=== PATIENT | female | born 1930 | race Caucasian/White ===

== ENCOUNTER 2019-05-12 17:08 | Observation (INO) ==
--- NOTE | 2019-05-12 17:27 | Emergency Department Note ---
ED Disposition Clinical Impression: Seizure Disposition: Admitted as Observation Condition on Discharge: Good - Critical Care Critical Care Time: No Attestation: On 05/12/19, the high probability of a clinically significant, sudden or life threatening deterioration of the following system(s) required my full and direct attention, intervention and personal management. The time I documented below is in addition to time spent performing reported procedures but includes the following listed in this critical care notation. Medical Decision Making - Nacho Inquiry Pt receiving controlled substance: No Vital Signs: 05/12/19 17:09 05/12/19 17:39 05/12/19 18:09 Temperature 97.9 F Temperature Source Oral Pulse Rate [Apical] 86 70 70 Respiratory Rate 18 Blood Pressure [Right Arm] 121/73 102/60 L 119/67 Blood Pressure Mean [Right Arm] 89 74 84 Blood Pressure Source [Right Arm] Automatic Cuff Blood Pressure Position [Right Arm] Sitting 02 Sat by Pulse Oximetry 94 L 92 L 96 Oxygen Delivery Method Room Air 05/12/19 18:49 Temperature Temperature Source Pulse Rate [Apical] 70 Respiratory Rate Blood Pressure [Right Arm] 141/76 H Blood Pressure Mean [Right Arm] 97 Blood Pressure Source [Right Arm] Blood Pressure Position [Right Arm] 02 Sat by Pulse Oximetry 94 L Oxygen Delivery Method - Lab Data Lab Results 05/12/19 17:10: WBC 7.5, RBC 4.47, Hgb 13.6, Hct 41.7, MCV 93.2, MCH 30.5, MCHC 32.7, RDW 12.9, Plt Count 235, MPV 7.3 L, Neut % (Auto) 55.4, Lymph % (Auto) 35.0, [place] % (Auto) 6.6, Eos % (Auto) 2.4, Baso % (Auto) 0.6, Neut # (Auto) 4.1, Lymph # (Auto) 2.6, [place] # (Auto) 0.5, Eos # (Auto) 0.2, Baso # (Auto) 0.1 05/12/19 17:10: Sodium 134 L, Potassium 3.9, Chloride 99, Carbon Dioxide 29, Anion Gap 9.9, BUN 18, Creatinine 1.11 H, Estimated Creat Clear 38, Estimated GFR 46 L, Est GFR ( Amer) 56 L, Glucose 184 H, Calcium 9.6, Total Bilirubin 0.6, AST 54 H, ALT 53, Alkaline Phosphatase 108, Troponin I < 0.02, Total Protein 7.2, Albumin 3.6, Globulin 3.6 H, Albumin/Globulin Ratio 1.0 L 05/12/19 18:16: Urine Color Yellow, Urine Appearance Clear, Urine pH 5.5, Ur Specific [place] 1.020, Urine Protein Negative, Urine Glucose (UA) Negative, Urine Ketones Negative, Urine Blood Negative, Urine Nitrate Negative, Urine Bilirubin Negative, Urine Urobilinogen 0.2, Ur Leukocyte Esterase Negative, Urine WBC Occasional, Ur Squamous Epith Cells Occasional, Urine Bacteria Trace, Hyaline Casts Occasional Result diagrams: 05/12/19 17:10 05/12/19 17:10 Orders (Tests/Meds): ORDERS Category Date Time Status CT head/brain wo con Stat Cat Scan 05/12/19 17:54 Taken - ECG Data Tracing #1 EKG interpreted by Néstor Yun MD: Rhythm: Electronic atrial pacemaker Rate: 76 [place]: Left Ectopy: none Conduction: normal ST Segment Changes: none T Wave Changes: none Q Waves: none No evidence of acute ischemia or injury LVH with repolarization abnormality Prior electrocardiagrams reviewed. No change from prior tracings. - Physician Consults Physician Consulted: Dana Maxwell Time: 19:45 Reason -: Admission Comment/Response: Agrees to admit the patient to the hospital. We discussed the patient's clinical information, including history, exam, laboratory and radiology results and ED course. Per hospital procedure, I will write temporary bridge inpatient orders on the patient. Specific orders requested by the admitting physician: Seizure precautions General Adult HPI - General Chief complaint: Syncope Stated complaint: Syncope Time Seen by Provider: 05/12/19 17:50 Mode of Arrival: EMS Limitations: No Limitations Description of Symptoms (Recalled from ER Triage Doc. by RN): internal grinder tender reported to EMS that she had just finished giving pt a bath, states when she stood pt up pt began shaking states she sat pt back down pt got was off balance and acted like she may pass out. States pt vomitting x1. EMS reports upon their arrival pt reported feeling better after vomitting. Upon arrival to ED pt has no complaints, states she is not hurting anywhere or dizzy. - History of Present Illness HPI narrative: Brought in by ambulance. History obtained from patient's pickle sorter and son. Regional Hr Manager witnessed the events today. She says that the patient complained of being tired today. A couple of times complained of difficulty breathing. All of that seemed to resolve. She then says that the patient was sitting in a chair and began shaking. She believed it was a seizure. It lasted for 2 minutes and the patient was unresponsive and drooling during the episode. Patient now says she feels fine. She denies any pain including headache. No chest pain. No shortness of breath. She has never had a seizure. She has dementia. Recently had a Quietapine added as needed for sleep at night and Aricept dose increased. Son states recently treated for urinary tract infection, had to have outpatient IV antibiotic therapy. - Related Data Home Medications Medication Instructions Recorded Confirmed Apixaban [Eliquis 2.5mg tab] 2.5 mg PO BID 11/22/17 05/12/19 Donepezil HCl [Aricept] 10 mg PO DAILY 11/22/17 05/12/19 Isosorbide Mononitrate [Imdur 60mg 30 mg PO DAILY 11/22/17 05/12/19 ER tablet] Potassium Chloride [K-Tab ER 10 10 mg PO BID 11/22/17 05/12/19 mEq] Sertraline HCl 50 mg PO DAILY 11/22/17 05/12/19 Sitagliptin Phosphate [Januvia 100 mg PO DAILY 11/22/17 05/12/19 25mg Tablet] Telmisartan [Micardis] 40 mg PO DAILY 11/22/17 05/12/19 Torsemide 10 mg PO DAILY 11/22/17 05/12/19 Memantine HCl [Namenda Xr] 28 mg PO DAILY 05/17/18 05/12/19 Insulin NPH Hum/Reg Insulin Hm 8 unit SQ HS 05/12/19 05/12/19 [Novolin 70-30 100 Unit/ml Vial] Insulin NPH Hum/Reg Insulin Hm 16 unit SQ DAILY 05/12/19 05/12/19 [Novolin 70-30 100 Unit/ml Vial] Metoprolol Tartrate 50 mg PO BID 05/12/19 05/12/19 Quetiapine Fumarate [Seroquel 25mg 25 mg PO HS 05/12/19 05/12/19 tablet] Allergies Allergy/AdvReac Type Severity Reaction Status Date / Time No Known Allergies Allergy Verified 05/17/18 20:44 [facility] History - Hepatitis A Screen Drug use history?: No High risk sexual behaviors?: No History of sexually transmitted infection?: No Currently employed?: No Childcare worker?: No Do you have indoor plumbing?: Yes Do you have electricity?: Yes Attestation statement:: This patient has been screened for Hepatitis A risk factors. I have reviewed the patient's past medical history: Yes Medical History: Reports:: Atrial Fibrillation, Diabetes Mellitus Type 2, Hyperlipidemia, Hypertension, Internal Pacemaker, Myocardial Infarction Denies:: Cancer, Diabetes Mellitus Type 1, MRSA Other Surgeries: Yes: Pacemaker Amputation: No Fractures: No - Social History Smoking Status: Never smoker Alcohol Intake: never Occupational Status: retired Household Members: children Family Hx:: Cancer, Hypertension ROS Obtained: Yes All systems reviewed & no additional complaints - Constitutional Constitutional: Denies fever(s) - Eyes Eyes: Denies change in vision - Cardiovascular Cardiovascular: Denies chest pain - Respiratory Respiratory: Yes as per HPI - Gastrointestinal Gastrointestingal: Denies: abdominal pain, diarrhea, vomiting - Genitourinary Female Genitourinary: Reports as per HPI - Neurologic Neurologic: Denies headache(s), Reports seizure-like activity Physical Exam - General General appearance: alert, in no apparent distress - Head Head exam: atraumatic, normocephalic - Eye Eye exam: Present: normal appearance, PERRL, EOMI - ENT ENT exam: Present: mucous membranes moist - Neck Neck exam: Present: normal inspection, full ROM, trachea midline. Absent: meningismus - Chest Chest inspection: Present: normal inspection, symmetric chest wall rise - Respiratory Respiratory exam: Present: normal lung sounds bilaterally. Absent: respiratory distress - Cardiovascular Cardiovascular exam: Present: regular rate, normal rhythm - Abdominal Exam Abdominal exam: Present: soft, normal bowel sounds. Absent: distention, tenderness - Extremities Exam Extremities exam: Present: normal inspection, full ROM - Neurological Exam Neurological exam: Present: alert, CN II-XII intact, other (dementia). Absent: motor sensory deficit - Psychiatric Psychiatric exam: Present: normal affect, normal mood - Skin Skin exam: Present: warm, dry
[2019-05-12 17:34] LABS: Basophils # 0.1 K/mm3 (0-0.2); Basophils % 0.6 % (0.1-2.0); Eosinophils # 0.2 K/mm3 (0.0-0.4); Eosinophils % 2.4 % (0.1-12.0); Hematocrit 41.7 % (37.0-47.0); Hemoglobin 13.6 g/dL (12.2-16.2); Lymphocytes # 2.6 K/mm3 (0.7-4.5); Mean Corpuscular HGB Conc 32.7 g/dL (31.8-35.4); Mean Corpuscular Volume 93.2 fl (81-99); Mean Platelet Volume 7.3 fl (7.4-10.4); Monocytes # 0.5 K/mm3 (0.1-1.0); Monocytes % 6.6 % (1.7-9.3); Neutrophils # 4.1 K/mm3 (1.8-7.8); Neutrophils % 55.4 % (37.0-80.0); Platelet Count 235 K/mm3 (142-424); Red Blood Count 4.47 M/mm3 (4.20-5.40); Red Cell Distribution Width 12.9 % (11.5-17.5); White Blood Count 7.5 K/mm3 (4.8-10.8)
[2019-05-12 17:44] LABS: Alanine Aminotransferase 53 U/L (12-78); Albumin Level 3.6 gm/dL (3.4-5.0); Alkaline Phosphatase 108 U/L (46-116); Anion Gap 9.9 mEq/L (5-15); Aspartate Amino Transferase 54 U/L (15-37); Bilirubin,Total 0.6 mg/dL (0.2-1.0); Blood Urea Nitrogen 18 mg/dL (7-18); Calcium 9.6 mg/dL (8.5-10.1); Carbon Dioxide 29 mmol/L (21.0-32.0); Chloride 99 mmol/L (98-107); Globulin 3.6 gm/dl (1.3-3.2); Glucose 184 mg/dL (74-106); Sodium 134 mmol/L (136-145); Total Protein,Serum 7.2 gm/dL (6.4-8.2)
[2019-05-12 18:18] LABS: Microscopic, Urine URINE MICROSCOPIC (MICROSCOPIC)
[2019-05-12 18:24] LABS: Appearance,Urine CLEAR (Clear); Bilirubin,Urine Negative (Negative); Blood, Urine Negative (Negative); Color,Urine YELLOW (Yellow); Glucose,Urine (UA) Negative (Negative); Ketones,Urine Negative (Negative); Leukocyte Esterase,Urine Negative (Negative); PH,Urine 5.5 (5.0-8.5); Protein,Urine Negative (Negative); Urobilinogen,Urine 0.2 EU/dl (0.2)
[2019-05-12 18:32] LABS: Bacteria,Urine Trace /lpf; Hyaline Casts,Urine Occasional #/lpf (0); Squamous Epithelial Cell,Urine Occasional #/hpf (0-5); WBC,Urine Occasional #/hpf (0-3)
--- NOTE | 2019-05-13 08:16 | H&P/Discharge Summary ---
General - General Admission date:: 05/12/19 Discharge date: 05/13/19 *Admission Date: 05/12/19 *Chief complaint: Episode of confusion and tonic-clonic movements *History of present illness: Brought in by ambulance. History obtained from patient's casting machine adjuster and son. Entry Level Machine Operator witnessed the events today. She says that the patient complained of being tired today. A couple of times complained of difficulty breathing. All of that seemed to resolve. She then says that the patient was sitting in a chair and began shaking. She believed it was a seizure. It lasted for 2 minutes and the patient was unresponsive and drooling during the episode. Patient now says she feels fine. She denies any pain including headache. No chest pain. No shortness of breath. She has never had a seizure. She has dementia. Recently had Quietapine added as needed for sleep at night and Aricept dose increased. Son states recently treated for urinary tract infection, had to have outpatient IV antibiotic therapy. Above note per ER. Work-up revealed negative CT scan. Normal labs, essentially negative urinalysis and patient had normalized. Admitted to observation for neuro checks overnight. [facility] History I have reviewed the patient's past medical history: Yes Medical History: Reports:: Atrial Fibrillation, Diabetes Mellitus Type 2, Hyperlipidemia, Hypertension, Internal Pacemaker, Myocardial Infarction Denies:: Cancer, Diabetes Mellitus Type 1, MRSA *Have you ever received a pneumonia vaccine?: No *Have you received a flu vaccine this season?: Yes Laterality Cases: Bilateral: Cataract Other Surgeries: Yes: Colonoscopy, Hysterectomy-Total, Pacemaker, Other Amputation: No Fractures: No - *Social History Educational Level: Completed High School Smoking Status: Never smoker Alcohol Intake: never *Occupational Status:: retired Housing: house Household Members: children *Travel in the last 8 weeks: None - Psychiatric History Expresses thoughts of harming self/others: None Suicide Plan Description: No Plan Family Hx:: Cancer, Heart Attack Review of Systems - Review of Systems Review of systems:: unable to obtain This morning patient is pleasant and talkative, her dementia prevents detailed review of systems but she specifically denies chest pain, respiratory discomfort or abdominal pain or diarrhea. - *Neurologic Reports seizure-like activity, Denies headache(s) Exam Vital signs and Labs for Last 24 Hours: Temp Pulse Resp BP Pulse Ox 97.9 F 84 16 146/84 H 97 05/13/19 04:00 05/13/19 04:00 05/13/19 04:00 05/13/19 04:00 05/13/19 04:00 Laboratory Results - last 24 hr 05/12/19 17:10: WBC 7.5, RBC 4.47, Hgb 13.6, Hct 41.7, MCV 93.2, MCH 30.5, MCHC 32.7, RDW 12.9, Plt Count 235, MPV 7.3 L, Neut % (Auto) 55.4, Lymph % (Auto) 35.0, [place] % (Auto) 6.6, Eos % (Auto) 2.4, Baso % (Auto) 0.6, Neut # (Auto) 4.1, Lymph # (Auto) 2.6, [place] # (Auto) 0.5, Eos # (Auto) 0.2, Baso # (Auto) 0.1 05/12/19 17:10: Sodium 134 L, Potassium 3.9, Chloride 99, Carbon Dioxide 29, Anion Gap 9.9, BUN 18, Creatinine 1.11 H, Estimated Creat Clear 38, Estimated GFR 46 L, Est GFR ( Amer) 56 L, Glucose 184 H, Calcium 9.6, Total Bilirubin 0.6, AST 54 H, ALT 53, Alkaline Phosphatase 108, Troponin I < 0.02, Total Protein 7.2, Albumin 3.6, Globulin 3.6 H, Albumin/Globulin Ratio 1.0 L 05/12/19 18:16: Urine Color Yellow, Urine Appearance Clear, Urine pH 5.5, Ur Specific [place] 1.020, Urine Protein Negative, Urine Glucose (UA) Negative, Urine Ketones Negative, Urine Blood Negative, Urine Nitrate Negative, Urine Bilirubin Negative, Urine Urobilinogen 0.2, Ur Leukocyte Esterase Negative, Urine WBC Occasional, Ur Squamous Epith Cells Occasional, Urine Bacteria Trace, Hyaline Casts Occasional 05/12/19 22:06: POC Glucose 156 H 05/13/19 05:45: POC Glucose 152 H I & O for Last 24 hours: Intake & Output 05/10/19 05/11/19 05/12/19 05/13/19 11:59 11:59 11:59 11:59 Intake Total 120 / 120 Balance 120 / 120 Weight 159 lb 8 oz Narrative: Pleasant. Talkative. Demented. Oropharynx clear. Cranial nerves by inspecti on are unremarkable. Lungs have good air movement, heart rate regular. Abdomen soft nontender. Spontaneously moving all extremities. Eating breakfast and is coordinated. Able to open up her food trays and maneuver her fork and spoon. no Peripheral edema, good capillary refill. Hospital Course Hospital Course: Patient did well overnight, no further episodes. This morning she is alert and exam has normalized to her baseline as noted above. Plan will be to discharge home in the care of her family. Given the new medication started Wednesday and its rare but noted in the literature side effect of seizures I recommended stopping Seroquel until they can see their primary physician once again. Results Labs on day of discharge: Labs from last 24 hours 05/13/19 05/12/19 05/12/19 05:45 22:06 18:16 WBC RBC Hgb Hct MCV MCH MCHC RDW Plt Count MPV Neut % (Auto) Lymph % (Auto) [place] % (Auto) Eos % (Auto) Baso % (Auto) Neut # (Auto) Lymph # (Auto) [place] # (Auto) Eos # (Auto) Baso # (Auto) Sodium Potassium Chloride Carbon Dioxide Anion Gap BUN Creatinine Estimated Creat Clear Estimated GFR Est GFR ( Amer) Glucose POC Glucose 152 H 156 H Calcium Total Bilirubin AST ALT Alkaline Phosphatase Troponin I Total Protein Albumin Globulin Albumin/Globulin Ratio Urine Color Yellow Urine Appearance Clear Urine pH 5.5 Ur Specific [place] 1.020 Urine Protein Negative Urine Glucose (UA) Negative Urine Ketones Negative Urine Blood Negative Urine Nitrate Negative Urine Bilirubin Negative Urine Urobilinogen 0.2 Ur Leukocyte Esterase Negative Urine WBC Occasional Ur Squamous Epith Cells Occasional Urine Bacteria Trace Hyaline Casts Occasional 05/12/19 05/12/19 17:10 17:10 WBC 7.5 RBC 4.47 Hgb 13.6 Hct 41.7 MCV 93.2 MCH 30.5 MCHC 32.7 RDW 12.9 Plt Count 235 MPV 7.3 L Neut % (Auto) 55.4 Lymph % (Auto) 35.0 [place] % (Auto) 6.6 Eos % (Auto) 2.4 Baso % (Auto) 0.6 Neut # (Auto) 4.1 Lymph # (Auto) 2.6 [place] # (Auto) 0.5 Eos # (Auto) 0.2 Baso # (Auto) 0.1 Sodium 134 L Potassium 3.9 Chloride 99 Carbon Dioxide 29 Anion Gap 9.9 BUN 18 Creatinine 1.11 H Estimated Creat Clear 38 Estimated GFR 46 L Est GFR ( Amer) 56 L Glucose 184 H POC Glucose Calcium 9.6 Total Bilirubin 0.6 AST 54 H ALT 53 Alkaline Phosphatase 108 Troponin I < 0.02 Total Protein 7.2 Albumin 3.6 Globulin 3.6 H Albumin/Globulin Ratio 1.0 L Urine Color Urine Appearance Urine pH Ur Specific [place] Urine Protein Urine Glucose (UA) Urine Ketones Urine Blood Urine Nitrate Urine Bilirubin Urine Urobilinogen Ur Leukocyte Esterase Urine WBC Ur Squamous Epith Cells Urine Bacteria Hyaline Casts DS: Diagnosis - Discharge Diagnosis (1) Seizure Status: Resolved Discharge Plan - Patient Discharge Instructions ACTIVITY: Continue current activity DIET: continue same diet Patient Instructions: DI for Seizure (Not Epilepsy/Seizure Disorder) - Follow up Plan Follow up with: Sohan Maxwell MD [Primary Care Provider] - 05/18/19 Disposition: Home, Self-Half-Way Medications: Home Medications Medication Instructions Recorded Confirmed Type Apixaban [Eliquis 2.5mg tab] 2.5 mg PO BID 11/22/17 05/12/19 History Donepezil HCl [Aricept] 5 mg PO DAILY 11/22/17 05/12/19 History Isosorbide Mononitrate [Imdur 60mg 30 mg PO DAILY 11/22/17 05/12/19 History ER tablet] Potassium Chloride [K-Tab ER 10 10 mg PO BID 11/22/17 05/12/19 History mEq] Sertraline HCl 50 mg PO DAILY 11/22/17 05/12/19 History Sitagliptin Phosphate [Januvia 100 mg PO DAILY 11/22/17 05/12/19 History 25mg Tablet] Telmisartan [Micardis] 40 mg PO DAILY 11/22/17 05/12/19 History Torsemide 10 mg PO DAILY 11/22/17 05/12/19 History Memantine HCl [Namenda Xr] 28 mg PO DAILY 05/17/18 05/12/19 History ALPRAZolam [Xanax 0.25mg tab] 0.25 mg PO BIDP PRN 05/12/19 05/12/19 History Dofetilide [Tikosyn 125mcg Capsule] 250 mcg PO BID 05/12/19 05/12/19 History Insulin NPH Hum/Reg Insulin Hm 8 unit SQ HS 05/12/19 05/12/19 History [Novolin 70-30 100 Unit/ml Vial] Insulin NPH Hum/Reg Insulin Hm 16 unit SQ DAILY 05/12/19 05/12/19 History [Novolin 70-30 100 Unit/ml Vial] Metoprolol Tartrate 50 mg PO BID 05/12/19 05/12/19 History Quetiapine Fumarate [Seroquel 25mg 25 mg PO HS 05/12/19 05/12/19 History tablet] Rosuvastatin Calcium 40 mg PO HS 05/12/19 05/12/19 History Prescriptions/Medication Reconciliation: Continued Torsemide 10 mg PO DAILY Telmisartan [Micardis] 40 mg PO DAILY Sitagliptin Phosphate [Januvia 25mg Tablet] 100 mg PO DAILY Sertraline HCl 50 mg PO DAILY Potassium Chloride [K-Tab ER 10 mEq] 10 mg PO BID Isosorbide Mononitrate [Imdur 60mg ER tablet] 30 mg PO DAILY Donepezil HCl [Aricept] 5 mg PO DAILY Apixaban [Eliquis 2.5mg tab] 2.5 mg PO BID Memantine HCl [Namenda Xr] 28 mg PO DAILY Insulin NPH Hum/Reg Insulin Hm [Novolin 70-30 100 Unit/ml Vial] 8 unit SQ HS Metoprolol Tartrate 50 mg PO BID ALPRAZolam [Xanax 0.25mg tab] 0.25 mg PO BIDP PRN PRN Reason: Anxiety Dofetilide [Tikosyn 125mcg Capsule] 250 mcg PO BID Rosuvastatin Calcium 40 mg PO HS Insulin NPH Hum/Reg Insulin Hm [Novolin 70-30 100 Unit/ml Vial] 16 unit SQ DAILY Discontinued Quetiapine Fumarate [Seroquel 25mg tablet] 25 mg PO HS - Problem Reconciliation Problems Reviewed?: Yes
--- NOTE | 2019-05-13 08:28 | Pharmacy Consult Notes ---
[facility] Pharmacy VTE Monitoring - Patient Demographics Admission date: 05/12/19 Report Date: 05/13/19 Time: 08:28 Allergies/Adverse Reactions: Patient Allergies No Known Allergies Allergy (Verified 05/17/18 20:44) Height: 1.63 m Weight: 72.348 kg - VTE Risk Labs: VTE Related Lab Results Hgb 13.6 g/dL (12.2-16.2) 05/12/19 17:10 Hct 41.7 % (37.0-47.0) 05/12/19 17:10 Plt Count 235 K/mm3 (142-424) 05/12/19 17:10 BUN 18 mg/dL (7-18) 05/12/19 17:10 Creatinine 1.11 mg/dL (0.55-1.02) H 05/12/19 17:10 Estimated Creat Clear 38 mL/min (50-200) 05/12/19 17:10 Was VTE Risk Assessment Performed: Yes VTE Score: 3 VTE Risk Level: Low Risk - Prophylaxis VTE Prophylaxis Ordered?: Yes Types of VTE Prophylaxis: Pharmacological Pharmacologic Type: Other (ELIQUIS)
--- NOTE | 2019-05-15 09:47 | Electrocardiograph Report ---
APPROVED REPORT Exam: Resting ECG HR:76 bpm ECG Measurements Heart Rate 76 AXES DE 182 P 65 QRSd 90 QRS -17 QT 418 T148 QTc 470 <Conclusion> Electronic atrial pacemaker Left ventricular hypertrophy with repolarization abnormality Abnormal ECG Electronically signed by : Sohan Cortez, 05/15/2019 09:47:01
== END 2019-05-13 09:35 | disposition home or self-care (01) ==
LOC: ER 17:08 → 2ND 17:08
PROVIDERS: ADMIT Internal Medicine Adolescent Medicine; ATTEND Family Medicine
CPT/HCPCS: 70450; 71010; 71045; 80053; 81001; 82962; 84484; 85025; 93005; 99285; G0378

== ENCOUNTER 2019-06-30 09:44 | Observation (INO) ==
--- NOTE | 2019-06-30 09:51 | Emergency Department Note ---
ED Disposition Clinical Impression: Weakness, Dementia, UTI (urinary tract infection), Enteritis Disposition: Admitted as Observation Condition on Discharge: Fair Referrals: Sohan Maxwell MD [Primary Care Provider] - Time of Disposition: 16:28 - Critical Care Critical Care Time: No Attestation: On 06/30/19, the high probability of a clinically significant, sudden or life th reatening deterioration of the following system(s) required my full and direct attention, intervention and personal management. The time I documented below is in addition to time spent performing reported procedures but includes the following listed in this critical care notation. Medical Decision Making - Medical Records Medical records reviewed: Yes: I reviewed the patient's medical records. - Nacho Inquiry Pt receiving controlled substance: No Nacho was queried for this patient: No Vital Signs: 06/30/19 09:48 06/30/19 13:07 06/30/19 14:38 Temperature 98.5 F Temperature Source Rectal Pulse Rate [Right Radial] 89 79 90 Respiratory Rate 14 Blood Pressure [Right Arm] 128/88 129/81 135/86 Blood Pressure Mean [Right Arm] 101 97 102 Blood Pressure Source [Right Arm] Automatic Cuff Automatic Cuff Automatic Cuff Blood Pressure Position [Right Arm] Sitting Sitting Sitting 02 Sat by Pulse Oximetry 95 97 98 Oxygen Delivery Method Room Air Room Air Room Air 06/30/19 15:40 Temperature Temperature Source Pulse Rate [Right Radial] 91 H Respiratory Rate Blood Pressure [Right Arm] 170/96 H Blood Pressure Mean [Right Arm] 120 Blood Pressure Source [Right Arm] Blood Pressure Position [Right Arm] Sitting 02 Sat by Pulse Oximetry 96 Oxygen Delivery Method Room Air - Lab Data Lab results reviewed: Yes: I reviewed the patient's lab results. Lab Results 06/30/19 09:45: WBC 8.0, RBC 4.73, Hgb 13.7, Hct 45.4, MCV 95.9, MCH 28.9, MCHC 30.1 L, RDW 13.8, Plt Count 193, MPV 7.9, Neut % (Auto) 75.0, Lymph % (Auto) 17.0, [place] % (Auto) 6.4, Eos % (Auto) 1.2, Baso % (Auto) 0.3, Neut # (Auto) 6.0, Lymph # (Auto) 1.4, Kleberg # (Auto) 0.5, Eos # (Auto) 0.1, Baso # (Auto) 0.0 06/30/19 09:45: Sodium 141, Potassium 4.0, Chloride 106, Carbon Dioxide 27, Anion Gap 12.0, BUN 21 H, Creatinine 0.88, Estimated Creat Clear 40, Estimated GFR 61, Est GFR ( Amer) 73, Glucose 107 H, Calcium 9.6, Total Bilirubin 0.6, AST 21, ALT 23, Alkaline Phosphatase 87, Total Protein 7.3, Albumin 3.4, Globulin 3.9 H, Albumin/Globulin Ratio 0.9 L 06/30/19 11:20: Urine Color Yellow, Urine Appearance Clear, Urine pH 6.0, Ur Specific [place] 1.020, Urine Protein Negative, Urine Glucose (UA) Negative, Urine Ketones Negative, Urine Blood Negative, Urine Nitrate Negative, Urine Bilirubin Negative, Urine Urobilinogen 0.2, Ur Leukocyte Esterase 1+ A, Urine RB C 3-5, Urine WBC 5-10, Ur Squamous Epith Cells Occasional, Urine Bacteria 1+ 06/30/19 11:50: Lactate 1.1 Result diagrams: 06/30/19 09:45 06/30/19 09:45 Orders (Tests/Meds): ED MEDICATIONS Discontinued Medications Generic Name Dose Route Start Last Admin Trade Name Freq PRN Reason Stop Dose Admin Alprazolam 0.5 mg 06/30/19 15:27 06/30/19 15:29 Xanax 0.5mg Tablet PO 06/30/19 15:28 0.5 mg ONCE ONE Administration Clonazepam 1 mg 06/30/19 15:26 Klonopin 0.5mg Tablet PO 06/30/19 15:27 ONCE ONE Sodium Chloride 1,000 mls @ 999 mls/hr 06/30/19 12:00 06/30/19 12:29 Sod Chlor 0.9% 1000ml Bag IV 06/30/19 13:00 999 mls/hr .[id number] GAYLE Administration Ioversol 75 ml 06/30/19 11:15 06/30/19 11:17 Rad-Optiray 350 150ml Vial IV 06/30/19 11:16 75 ml ONCE ONE Administration ORDERS Category Date Time Status Blood Culture Stat Micro 06/30/19 11:50 Received Urine Culture Stat Micro 06/30/19 11:20 Received General Adult HPI - General Chief complaint: Altered Mental Status Stated complaint: AMS Time Seen by Provider: 06/30/19 09:48 Mode of Arrival: Ambulatory Source of Information: Patient Limitations: No Limitations - History of Present Illness HPI narrative: generalized weakness, recent diagnosis of UTI by culture, took one dose of antibiotic and had this "reaction". Some abdominal pain, no vomiting or diarrhea - Related Data Home Medications Medication Instructions Recorded Confirmed Apixaban [Eliquis 2.5mg tab] 2.5 mg PO BID 11/22/17 05/12/19 Donepezil HCl [Aricept] 5 mg PO DAILY 11/22/17 05/12/19 Isosorbide Mononitrate [Imdur 60mg 30 mg PO DAILY 11/22/17 05/12/19 ER tablet] Potassium Chloride [K-Tab ER 10 10 mg PO BID 11/22/17 05/12/19 mEq] Sertraline HCl 50 mg PO DAILY 11/22/17 05/12/19 Sitagliptin Phosphate [Januvia 100 mg PO DAILY 11/22/17 05/12/19 25mg Tablet] Telmisartan [Micardis] 40 mg PO DAILY 11/22/17 05/12/19 Torsemide 10 mg PO DAILY 11/22/17 05/12/19 Memantine HCl [Namenda Xr] 28 mg PO DAILY 05/17/18 05/12/19 ALPRAZolam [Xanax 0.25mg tab] 0.25 mg PO BIDP PRN 05/12/19 05/12/19 Dofetilide [Tikosyn 125mcg Capsule] 250 mcg PO BID 05/12/19 05/12/19 Insulin NPH Hum/Reg Insulin Hm 8 unit SQ HS 05/12/19 05/12/19 [Novolin 70-30 100 Unit/ml Vial] Insulin NPH Hum/Reg Insulin Hm 16 unit SQ DAILY 05/12/19 05/12/19 [Novolin 70-30 100 Unit/ml Vial] Metoprolol Tartrate 50 mg PO BID 05/12/19 05/12/19 Rosuvastatin Calcium 40 mg PO HS 05/12/19 05/12/19 Allergies Allergy/AdvReac Type Severity Reaction Status Date / Time No Known Allergies Allergy Verified 05/17/18 20:44 [facility] History - Hepatitis A Screen Attestation statement:: This patient has been screened for Hepatitis A risk factors. I have reviewed the patient's past medical history: Yes Medical History: Reports:: Atrial Fibrillation, Diabetes Mellitus Type 2, Hyperlipidemia, Hypertension, Internal Pacemaker, Myocardial Infarction Denies:: Cancer, Diabetes Mellitus Type 1, MRSA Other Surgeries: Yes: Colonoscopy, Hysterectomy-Total, Pacemaker, Other Amputation: No Fractures: No - Social History Smoking Status: Never smoker Alcohol Intake: never Occupational Status: retired Housing: house Household Members: children Family Hx:: Cancer, Heart Attack ROS Obtained: Yes All systems reviewed & no additional complaints - Constitutional Constitutional: Denies fever(s) - Eyes Eyes: Denies change in vision - ENT Ears, Nose, Mouth, and Throat: Denies dizziness, Denies sinus pain, Denies sinus pressure, Denies sore throat, Denies throat swelling - Cardiovascular Cardiovascular: Denies chest pain - Respiratory Respiratory: No chest congestion, No cough, No dyspnea on exertion - Gastrointestinal Gastrointestingal: Reports: abdominal pain. Denies: diarrhea, vomiting - Integumentary/Breasts Skin/Breast: Denies rash, Denies skin pain - Neurologic Neurologic: Denies dizziness, Denies focal weakness - Hematologic/Lymphatic Henatologic/Lymphatic: Denies easy bleeding, Denies easy bruising Physical Exam - General General appearance: alert, in no apparent distress - Head Head exam: atraumatic, normocephalic, normal inspection - Eye Eye exam: Present: normal appearance, PERRL, EOMI - ENT ENT exam: Present: normal exam, normal oropharynx, mucous membranes moist, TM's normal bilaterally, normal external ear exam - Neck Neck exam: Present: normal inspection, full ROM, trachea midline. Absent: meningismus, lymphadenopathy - Chest Chest inspection: Present: normal inspection, symmetric chest wall rise. Absent: tenderness - Respiratory Respiratory exam: Present: normal lung sounds bilaterally. Absent: respiratory distress - Cardiovascular Cardiovascular exam: Present: regular rate, normal rhythm. Absent: JVD - Abdominal Exam Abdominal exam: Present: soft, tenderness, rebound, normal bowel sounds. Absent: distention, guarding Abdominal tenderness: Present: RLQ, LLQ - Extremities Exam Extremities exam: Present: normal inspection - Neurological Exam Neurological exam: Present: alert, oriented X3. Absent: motor sensory deficit - Psychiatric Psychiatric exam: Present: normal affect, normal mood
[2019-06-30 10:15] LABS: Basophils % 0.3 % (0.1-2.0); Eosinophils # 0.1 K/mm3 (0.0-0.4); Eosinophils % 1.2 % (0.1-12.0); Hematocrit 45.4 % (37.0-47.0); Hemoglobin 13.7 g/dL (12.2-16.2); Lymphocytes # 1.4 K/mm3 (0.7-4.5); Mean Corpuscular HGB Conc 30.1 g/dL (31.8-35.4); Mean Corpuscular Volume 95.9 fl (81-99); Mean Platelet Volume 7.9 fl (7.4-10.4); Monocytes # 0.5 K/mm3 (0.1-1.0); Monocytes % 6.4 % (1.7-9.3); Platelet Count 193 K/mm3 (142-424); Red Blood Count 4.73 M/mm3 (4.20-5.40); Red Cell Distribution Width 13.8 % (11.5-17.5)
[2019-06-30 10:21] LABS: Albumin Level 3.4 gm/dL (3.4-5.0); Albumin/Globulin Ratio 0.9 (1.1-1.8); Bilirubin,Total 0.6 mg/dL (0.2-1.0); Calcium 9.6 mg/dL (8.5-10.1); Globulin 3.9 gm/dl (1.3-3.2); Total Protein,Serum 7.3 gm/dL (6.4-8.2)
[2019-06-30 11:26] LABS: Microscopic, Urine URINE MICROSCOPIC (MICROSCOPIC)
[2019-06-30 11:30] LABS: Appearance,Urine CLEAR (Clear); Bilirubin,Urine Negative (Negative); Blood, Urine Negative (Negative); Color,Urine YELLOW (Yellow); Glucose,Urine (UA) Negative (Negative); Ketones,Urine Negative (Negative); Leukocyte Esterase,Urine 1+ (Negative); Protein,Urine Negative (Negative); Urobilinogen,Urine 0.2 EU/dl (0.2)
[2019-06-30 11:50] LABS: Bacteria,Urine 1+ /lpf; Squamous Epithelial Cell,Urine Occasional #/hpf (0-5)
--- NOTE | 2019-07-01 11:18 | Pharmacy Consult Notes ---
[facility] Pharmacy VTE Monitoring - Patient Demographics Admission date: 06/30/19 Report Date: 07/01/19 Time: 11:18 Allergies/Adverse Reactions: Patient Allergies No Known Allergies Allergy (Verified 05/17/18 20:44) Height: 1.6 m Weight: 68.804 kg Patient Problems: Current Active Problems Weakness (Acute) UTI (urinary tract infection) (Acute) Dementia (Acute) Enteritis (Acute) - VTE Risk Labs: VTE Related Lab Results Hgb 13.7 g/dL (12.2-16.2) 06/30/19 09:45 Hct 45.4 % (37.0-47.0) 06/30/19 09:45 Plt Count 193 K/mm3 (142-424) 06/30/19 09:45 BUN 21 mg/dL (7-18) H 06/30/19 09:45 Creatinine 0.88 mg/dL (0.55-1.02) 06/30/19 09:45 Estimated Creat Clear 40 mL/min (50-200) 06/30/19 09:45 Was VTE Risk Assessment Performed: Yes VTE Score: 2 VTE Risk Level: Very Low Risk - Prophylaxis VTE Prophylaxis Ordered?: Yes Types of VTE Prophylaxis: TEDS Knee High Location of Applied Device: Bilateral Lower Extremeties
--- NOTE | 2019-07-01 11:26 | H&P/Discharge Summary ---
General - General Admission date:: 06/30/19 Discharge date: 07/01/19 *Admission Date: 06/30/19 *Chief complaint: confusion *History of present illness: 89-year-old female with dementia who presented from home due to some slight increase in confusion and concern for diarrhea. Family is at bedside and giving history this morning. Patient does not realize she is at the hospital and think she is at home. They state that earlier this week they saw her primary care doctor who diagnosed her with a UTI. Started her on Bactrim and after taking 1 dose she became more delirious and altered than usual. They brought her to the ER where she was found to have some abnormalities with her urine and acute worsening of her underlying dementia. She was admitted for observation overnight and IV fluids. On interview this morning she has no significant complaints. States her loose stools have improved somewhat. Is hemodynamically stable and afebrile. [facility] History I have reviewed the patient's past medical history: Yes Medical History: Reports:: Atrial Fibrillation, Congestive Heart Failure, Diabetes Mellitus Type 2, Hyperlipidemia, Hypertension, Internal Pacemaker, Myocardial Infarction Denies:: Cancer, Diabetes Mellitus Type 1, MRSA *Have you ever received a pneumonia vaccine?: Yes *Have you received a flu vaccine this season?: Yes Other Surgeries: Yes: Colonoscopy, Hysterectomy-Total, Pacemaker, Other Amputation: No Fractures: No - *Social History Educational Level: Attended High School Smoking Status: Never smoker Alcohol Intake: never *Occupational Status:: retired Housing: house Household Members: children *Travel in the last 8 weeks: None Family Hx:: Cancer, Diabetes, Heart Attack, Hyperlipidemia, Hypertension, Stroke Review of Systems - Review of Systems Review of systems:: pertinent systems reviewed and negative unless documented below - *Neurologic Denies dizziness, Denies localized weakness Exam Vital signs and Labs for Last 24 Hours: Temp Pulse Resp BP Pulse Ox 98.2 F 102 H 18 143/71 H 96 07/01/19 08:00 07/01/19 08:00 07/01/19 08:00 07/01/19 08:00 07/01/19 08:00 Laboratory Results - last 24 hr 06/30/19 11:20: Urine Color Yellow, Urine Appearance Clear, Urine pH 6.0, Ur Specific [place] 1.020, Urine Protein Negative, Urine Glucose (UA) Negative, Urine Ketones Negative, Urine Blood Negative, Urine Nitrate Negative, Urine Bilirubin Negative, Urine Urobilinogen 0.2, Ur Leukocyte Esterase 1+ A, Urine RBC 3-5, Urine WBC 5-10, Ur Squamous Epith Cells Occasional, Urine Bacteria 1+ 06/30/19 11:50: Lactate 1.1 06/30/19 17:15: Stl Aeromonas (PCR) Not detected, Stl C. cayetanensis PCR Not detected, Stool Rotavirus (PCR) Not detected, Stl Adenov F 40/41 PCR Not detected, Stool Astrovirus (PCR) Not detected, Stool Campylobacter PCR Not detected, Stl C.difficile Tox PCR Not detected, Stool Cryptosporidium PCR Not detected, Stl E.coli Shiga Tox PCR Not detected, Stool E coli O157 PCR Not detected, Stl Enterotoxigenic E PCR Not detected, Stool EPEC (PCR) Not detected, Stool EAEC (PCR) Not detected, Stl E. histolytica PCR Not detected, Stool Giardia Lamblia PCR Not detected, Stool Salmonella PCR Not detected, Stool Sa povirus (PCR) Not detected, Stl P. shigelloides PCR Not detected, Stl Shigella/EIEC PCR Not detected, St Y.enterocolitica PCR Not detected, Stool Vibrio (PCR) Not detected, Stl Vibrio cholerae PCR Not detected, Stl Norovirus GI/GII PCR Not detected 06/30/19 20:03: POC Glucose 178 H 07/01/19 05:54: POC Glucose 184 H I & O for Last 24 hours: Intake & Output 06/28/19 06/29/19 06/30/19 07/01/19 23:59 23:59 23:59 23:59 Intake Total 1314 / 1314 Output Total 650 / 650 Balance 664 / 664 Weight 70.817 kg 68.804 kg Microbiology Reports for the Last 24 Hours: Microbiology 06/30/19 11:20 Urine,Catheterized Urine Culture - Preliminary Gram Negative Rods - Constitutional no acute distress, disheveled Comments: elderly - *Routine HEENT Exam Head: Present: normocephalic Eye: Present: EOMI, PERRL ENT: Present: mucous membranes moist - *Routine Neck Exam Present: supple. Absent: lymphadenopathy - *Routine Respiratory Exam Present: CTA bilaterally - *Routine Cardiovascular Exam Present: RRR - *Routine Abdominal Exam Present: soft, normoactive bowel sounds, tenderness (minimal in lower abdomen). Absent: rebound, guarding - *Routine Extremities Exam Absent: cyanosis, clubbing, edema - *Routine Skin Exam Present: warm. Absent: rash - *Routine Neurological Exam Present: alert Disoriented. Think she is at home. Is trying to fold the blanket and saying it is her coat. Knows her name but is otherwise disoriented Hospital Course Hospital Course: Monitored overnight. Family states she is more confused with her concern is because of her location in the hospital. Remained hemodynamically stable without fever. Plan to initiate oral antibiotic consisting of Macrobid for 7 days for her UTI. Patient otherwise hemodynamically stable and does not necessitate staying in the hospital. Discharged home where I suspect she will be more comfortable in a familiar setting. Family okay with this plan. Results Labs on day of discharge: Labs from last 24 hours 07/01/19 06/30/19 06/30/19 05:54 20:03 17:15 POC Glucose 184 H 178 H Lactate Urine Color Urine Appearance Urine pH Ur Specific [place] Urine Protein Urine Glucose (UA) Urine Ketones Urine Blood Urine Nitrate Urine Bilirubin Urine Urobilinogen Ur Leukocyte Esterase Urine RBC Urine WBC Ur Squamous Epith Cells Urine Bacteria Stl Aeromonas (PCR) Not detected Stl C. cayetanensis PCR Not detected Stool Rotavirus (PCR) Not detected Stl Adenov F 40/41 PCR Not detected Stool Astrovirus (PCR) Not detected Stool Campylobacter PCR Not detected Stl C.difficile Tox PCR Not detected Stool Cryptosporidium PCR Not detected Stl E.coli Shiga Tox PCR Not detected Stool E coli O157 PCR Not detected Stl Enterotoxigenic E PCR Not detected Stool EPEC (PCR) Not detected Stool EAEC (PCR) Not detected Stl E. histolytica PCR Not detected Stool Giardia Lamblia PCR Not detected Stool Salmonella PCR Not detected Stool Sapovirus (PCR) Not detected Stl P. shigelloides PCR Not detected Stl Shigella/EIEC PCR Not detected St Y.enterocolitica PCR Not detected Stool Vibrio (PCR) Not detected Stl Vibrio cholerae PCR Not detected Stl Norovirus GI/GII PCR Not detected 06/30/19 06/30/19 11:50 11:20 POC Glucose Lactate 1.1 Urine Color Yellow Urine Appearance Clear Urine pH 6.0 Ur Specific [place] 1.020 Urine Protein Negative Urine Glucose (UA) Negative Urine Ketones Negative Urine Blood Negative Urine Nitrate Negative Urine Bilirubin Negative Urine Urobilinogen 0.2 Ur Leukocyte Esterase 1+ A Urine RBC 3-5 Urine WBC 5-10 Ur Squamous Epith Cells Occasional Urine Bacteria 1+ Stl Aeromonas (PCR) Stl C. cayetanensis PCR Stool Rotavirus (PCR) Stl Adenov F 40/41 PCR Stool Astrovirus (PCR) Stool Campylobacter PCR Stl C.difficile Tox PCR Stool Cryptosporidium PCR Stl E.coli Shiga Tox PCR Stool E coli O157 PCR Stl Enterotoxigenic E PCR Stool EPEC (PCR) Stool EAEC (PCR) Stl E. histolytica PCR Stool Giardia Lamblia PCR Stool Salmonella PCR Stool Sapovirus (PCR) Stl P. shigelloides PCR Stl Shigella/EIEC PCR St Y.enterocolitica PCR Stool Vibrio (PCR) Stl Vibrio cholerae PCR Stl Norovirus GI/GII PCR Preliminary micro results at discharge 06/30/19 11:20 Urine Culture - Preliminary Urine,Catheterized Gram Negative Rods DS: Diagnosis - Discharge Diagnosis (1) Dementia Status: Chronic (2) Enteritis Status: Acute (3) UTI (urinary tract infection) Status: Acute (4) Diabetes mellitus Status: Chronic Discharge Plan - Patient Discharge Instructions ACTIVITY: Continue current activity DIET: continue same diet Patient Instructions: DI for Urinary Tract Infection (UTI), DI for Enteritis - Follow up Plan Follow up with: Sohan Maxwell MD [Primary Care Provider] - Disposition: Home, Self-Fpc Medications: Home Medications Medication Instructions Recorded Confirmed Type Apixaban [Eliquis 2.5mg tab] 2.5 mg PO BID 11/22/17 06/30/19 History Isosorbide Mononitrate [Imdur 60mg 30 mg PO DAILY 11/22/17 06/30/19 History ER tablet] Potassium Chloride [K-Tab ER 10 10 mg PO BID 11/22/17 06/30/19 History mEq] Sertraline HCl 50 mg PO HS 11/22/17 06/30/19 History Sitagliptin Phosphate [Januvia 100 mg PO DAILY 11/22/17 06/30/19 History 25mg Tablet] Telmisartan [Micardis] 40 mg PO DAILY 11/22/17 06/30/19 History Torsemide 10 mg PO DAILY 11/22/17 06/30/19 History Memantine HCl [Namenda Xr] 28 mg PO DAILY 05/17/18 06/30/19 History ALPRAZolam [Xanax 0.25mg tab] 0.25 mg PO BIDP PRN 05/12/19 06/30/19 History Dofetilide [Tikosyn 125mcg Capsule] 250 mcg PO BID 05/12/19 06/30/19 History Insulin NPH Hum/Reg Insulin Hm 8 unit SQ HS 05/12/19 06/30/19 History [Novolin 70-30 100 Unit/ml Vial] Insulin NPH Hum/Reg Insulin Hm 18 unit SQ DAILY 05/12/19 06/30/19 History [Novolin 70-30 100 Unit/ml Vial] Metoprolol Tartrate 50 mg PO BID 05/12/19 06/30/19 History Atorvastatin Calcium [Atorvastatin 40 mg PO HS 06/30/19 06/30/19 History 40mg Tab] Donepezil HCl [Aricept 5mg 5 mg PO HS 07/01/19 07/01/19 History Tablet] Nitrofurantoin Monohyd/M-Cryst 100 mg PO BID 7 Days #14 cap 07/01/19 Rx [Macrobid 100 mg Capsule] Prescriptions/Medication Reconciliation: New Nitrofurantoin Monohyd/M-Cryst [Macrobid 100 mg Capsule] 100 mg PO BID 7 Days #14 cap Continued Torsemide 10 mg PO DAILY Telmisartan [Micardis] 40 mg PO DAILY Sitagliptin Phosphate [Januvia 25mg Tablet] 100 mg PO DAILY Sertraline HCl 50 mg PO HS Potassium Chloride [K-Tab ER 10 mEq] 10 mg PO BID Isosorbide Mononitrate [Imdur 60mg ER tablet] 30 mg PO DAILY Apixaban [Eliquis 2.5mg tab] 2.5 mg PO BID Memantine HCl [Namenda Xr] 28 mg PO DAILY Insulin NPH Hum/Reg Insulin Hm [Novolin 70-30 100 Unit/ml Vial] 8 unit SQ HS Metoprolol Tartrate 50 mg PO BID ALPRAZolam [Xanax 0.25mg tab] 0.25 mg PO BIDP PRN PRN Reason: Anxiety Dofetilide [Tikosyn 125mcg Capsule] 250 mcg PO BID Insulin NPH Hum/Reg Insulin Hm [Novolin 70-30 100 Unit/ml Vial] 18 unit SQ DAILY Atorvastatin Calcium [Atorvastatin 40mg Tab] 40 mg PO HS Donepezil HCl [Aricept 5mg Tablet] 5 mg PO HS - Problem Reconciliation Problems Reviewed?: Yes
== END 2019-07-01 12:35 | disposition home or self-care (01) ==
LOC: ER 09:44 → 2ND 09:44
PROVIDERS: ADMIT Emergency Medicine; ATTEND Family Medicine
CPT/HCPCS: 36415; 74177; 80053; 81001; 82962; 83605; 85025; 87040; 87086; 87088; 87186; 87507; 99284; G0378; Q9967